=== PATIENT | male | born 1965 | race American Indian/Alaskan Native ===

== ENCOUNTER 2017-05-05 12:56 | Emergency (ER) | payer BC, OTHER ==
--- NOTE | 2017-05-05 14:37 | XRay Report ---
RIGHT SHOULDER RADIOGRAPHS INDICATION: Fall. COMPARISON: None similar at this institution. FINDINGS: Frontal and Y views of the right shoulder, 3 projections demonstrate normal humeral head contour, well positioned against the glenoid. Mild degenerative changes near the rotator cuff insertion possible/subtle Hill-Sachs deformity. Normal acromioclavicular joint. Preserved scapular contour. Normal visualized soft tissues, right ribs and lung. CONCLUSION: No acute right shoulder radiographic abnormality, as described. Thank you for the opportunity to participate in this patient's care.
--- NOTE | 2017-05-05 19:05 | Emergency Department Report ---
Upper Extremity - HPI Chief Complaint: Shoulder Injury Stated Complaint: RT SHOULDER PAIN Time Seen by Provider: 05/05/17 18:54 Upper Extremity: Right Shoulder Occurred When: Today Severity: moderate Symptoms: Yes Pain with Movement, No Deformity, No Limited Range of Movement, No Numbness, No Weakness, No Swelling, No Bruising/Ecchymosis, No Laceration or Abrasion Other History: 51-year-old male past medical history hypertension presents with complaint of right shoulder pain status post fall while playing with his children yesterday. Patient states that he fell onto his right shoulder. Denies any loss of consciousness no nausea no vomiting no neck pain only complaining of pain and right upper shoulder region. Patient states that moving his shoulder around is painful. No lacerations sustained. Also states that he ran out of his amlodipine approximately 3 weeks ago. ED Review of Systems ROS: Stated complaint: RT SHOULDER PAIN Other details as noted in HPI Constitutional: denies: chills, fever Eyes: denies: eye pain, eye discharge, vision change ENT: denies: ear pain, throat pain Respiratory: denies: cough, shortness of breath, wheezing Cardiovascular: denies: chest pain, palpitations Endocrine: no symptoms reported Gastrointestinal: denies: abdominal pain, nausea, diarrhea Genitourinary: denies: urgency, dysuria Musculoskeletal: denies: back pain, joint swelling, arthralgia Skin: denies: rash, lesions Neurological: denies: headache, weakness, paresthesias Psychiatric: denies: anxiety, depression Hematological/Lymphatic: denies: easy bleeding, easy bruising ED Past Medical Hx - Medications Home Medications: Home Medications Medication Instructions Recorded Confirmed Last Taken Type Acetaminophen/Codeine [Tylenol 1 tab PO Q6H PRN #12 tab 05/05/17 Unknown Rx /Codeine # 3 tab] Naproxen [Naprosyn TAB] 500 mg PO BID PRN #25 tablet 05/05/17 Unknown Rx amLODIPine [Norvasc] 10 mg PO DAILY #30 tab 05/05/17 Unknown Rx Upper Extremity Exam - Exam General: Vital signs noted. No distress. Alert and acting appropriately. Head and Torso: No HEENT Abnormality, No Neck Tenderness, No Chest/Lungs Abnormality, No Abdominal Tenderness, No Back Tenderness Shoulder Exam: Yes Normal Range of Motion in Shoulder (shoulder abduction and abduction and internalRotation intact), No Shoulder Tenderness, No Clavicle Tenderness, No Shoulder Deformity, No AC Joint Tenderness Arm Exam: No Arm/Humerus Tenderness, No Arm Deformity Elbow: No Elbow Tenderness, No Normal Range of Motion in Elbow, No Elbow Deformity Forearm: No Forearm Tenderness, No Forearm Deformity, No Pain with Pronation, No Pain with Supination Wrist: Yes Normal ROM in Wrist, No Wrist Tenderness, No Wrist Deformity, No Snuffbox Tenderness, No Pain with Axial Thumb Compression Hand: Yes Normal ROM in Digit(s), No Hand Tenderness, No Hand Deformity, No Digit Tenderness, No Digit(s) Deformity, No Tendon Dysfunction CMS Exam: Yes Normal Distal Pulses (distal radial and ulnar pulses intact), Yes Normal Capillary Refill (distal capillary refill less than one second in all fingers), Yes Normal Distal Sensation (distal sensation intact), No Broken Skin ED Course Vital Signs 05/05/17 13:43 Temperature 98.9 F Pulse Rate 87 Respiratory 16 Rate Blood Pressure 157/109 O2 Sat by Pulse 100 Oximetry ED Medical Decision Making - Medical Decision Making A/P: Possible right rotator cuff injury, right shoulder pain 1-x-ray shows no fracture, patient has no signs of clinical dislocation right upper extremity is neurovascularly intact, sensation intact strength 5 out of 5 2-pain with shoulder abduction above 90 suggestive of a rotator cuff injury 3-naproxen when necessary, Tylenol No. 3 when necessary 4- follow-up with primary [facility] orthopedics. Patient has no chest pain or shortness of breath no dizziness no headache no blurry vision no abdominal pain states that he ran out of his blood pressure medicine 3 weeks ago. We'll give patient refill on his amlodipine and refer him to primary care. Critical care attestation.: If time is entered above; I have spent that time in minutes in the direct care of this critically ill patient, excluding procedure time. ED Disposition Clinical Impression: Asymptomatic hypertension Right shoulder pain Qualifiers: Chronicity: acute Qualified Code(s): M25.511 - Pain in right shoulder Disposition: TO HOME OR SELFCARE Is pt being admited?: No Does the pt Need Aspirin: No Condition: Stable Instructions: Rotator Cuff Injury (ED), Shoulder Sprain (ED), Hypertension (ED) , Arthralgia (ED) Prescriptions: Acetaminophen/Codeine [Tylenol /Codeine # 3 tab] 1 tab PO Q6H PRN #12 tab PRN Reason: Pain amLODIPine [Norvasc] 10 mg PO DAILY #30 tab Naproxen [Naprosyn TAB] 500 mg PO BID PRN #25 tablet PRN Reason: Pain Referrals: TIM GREER MD [Staff Physician] - 3-5 Days [facility] [Provider Group] - 3-5 Days Forms: Work/School Release Form(ED) Time of Disposition: 19:16
[2017-05-05] MEDS ORDERED: MOTRIN PO ONE (19:14)
[2017-05-05] MEDS ORDERED: NORCO 5/325 PO ONE (19:14)
[2017-05-05] MEDS ORDERED: NORVASC PO ONE (19:57)
[2017-05-06 01:05] VITALS: BP 148/92
== END 2017-05-05 19:58 | disposition home or self-care (01) ==
LOC: ED 12:56
DX: M25.511 Pain in right shoulder (principal); I10 Essential (primary) hypertension
CPT/HCPCS: 99283

== ENCOUNTER 2022-02-16 13:24 | Emergency (ER) | payer SELFPAY ==
[2022-02-16] MEDS ORDERED: cloNIDine 0.2 MG TAB PO ONE (13:42)
[2022-02-16 13:56] LABS: Basophils % (Auto) 0.7 % (0.0-1.8); Eosinophils % (Auto) 0.3 % (0.0-4.3); Hematocrit 52.9 % (35.5-45.6); Hemoglobin 17.5 gm/dl (11.8-15.2); Lymphocytes # (Auto) 0.8 K/mm3 (1.2-5.4); Lymphocytes % (Auto) 17.4 % (13.4-35.0); Mean Corpuscular HGB Conc 33 % (32-34); Mean Corpuscular Volume 96 fl (84-94); Monocytes # (Auto) 0.4 K/mm3 (0.0-0.8); Monocytes % (Auto) 9.8 % (0.0-7.3); Platelet Count 185 K/mm3 (140-440); Red Blood Count 5.54 M/mm3 (3.65-5.03); Red Cell Distribution Width 15.1 % (13.2-15.2)
--- NOTE | 2022-02-16 14:19 | XRay Report ---
CHEST 2 VIEWS INDICATION: cp. COMPARISON: None. FINDINGS: Support devices: None. Heart: Within normal limits. Lungs/Pleura: No acute air space or interstitial disease. No significant pleural effusion. IMPRESSION: No acute findings. Signer Name: Emile Umana MD Signed: 02/16/2022 2:14 PM Workstation Name: [email or web address]
[2022-02-16 14:21] LABS: Alanine Aminotransferase 20 units/L (7-56); Albumin 4.4 g/dL (3.9-5); BUN/Creatinine Ratio 12; Blood Urea Nitrogen 11 mg/dL (9-20); Calcium 9.8 mg/dL (8.4-10.2); Hemolysis Index 10
[2022-02-16] MEDS ORDERED: hydrALAZINE 20 MG/1 ML INJ IV ONE (20:10)
[2022-02-16] MEDS ORDERED: hydrALAZINE 20 MG/1 ML INJ ONE (20:12)
--- NOTE | 2022-02-16 20:53 | Emergency Department Report ---
ED General Adult HPI - General Chief complaint: High BP Stated complaint: HBP Time Seen by Provider: 02/16/22 16:39 Source: patient Mode of arrival: Ambulatory Limitations: No Limitations - History of Present Illness Initial comments: Patient is a 56-year-old male presenting to ED with complaint of hypertension. He was seen earlier today at GI clinic where he was found to have significantly elevated blood pressure. Patient denies any symptoms. He denies past history of hypertension and is currently not on any medications. - Related Data Previous Rx's Medication Instructions Recorded Last Taken Type Acetaminophen/Codeine [Tylenol 1 tab PO Q6H PRN #12 tab 05/05/17 Unknown Rx /Codeine # 3 tab] Naproxen [Naprosyn TAB] 500 mg PO BID PRN #25 tablet 05/05/17 Unknown Rx amLODIPine 10 mg PO DAILY #30 tab 05/05/17 Unknown Rx Allergies Allergy/AdvReac Type Severity Reaction Status Date / Time No Known Allergies Allergy Verified 02/16/22 13:36 ED Review of Systems ROS: Stated complaint: HBP Other details as noted in HPI Comment: All other systems reviewed and negative Constitutional: denies: chills, fever Respiratory: denies: cough, shortness of breath, wheezing Cardiovascular: denies: chest pain, palpitations Gastrointestinal: denies: abdominal pain, nausea, diarrhea Musculoskeletal: denies: back pain, joint swelling, arthralgia Skin: denies: rash, lesions Neurological: denies: headache, weakness, paresthesias Psychiatric: denies: anxiety, depression ED Past Medical Hx - Medications Home Medications: Home Medications Medication Instructions Recorded Confirmed Last Taken Type Acetaminophen/Codeine [Tylenol 1 tab PO Q6H PRN #12 tab 05/05/17 Unknown Rx /Codeine # 3 tab] Naproxen [Naprosyn TAB] 500 mg PO BID PRN #25 tablet 05/05/17 Unknown Rx amLODIPine 10 mg PO DAILY #30 tab 05/05/17 Unknown Rx ED Physical Exam - General Limitations: No Limitations General appearance: alert, in no apparent distress - Head Head exam: Present: atraumatic, normocephalic - Respiratory Respiratory exam: Present: normal lung sounds bilaterally. Absent: respiratory distress - Cardiovascular Cardiovascular Exam: Present: regular rate, normal rhythm, normal heart sounds - GI/Abdominal GI/Abdominal exam: Present: soft. Absent: tenderness, guarding - Neurological Exam Neurological exam: Present: alert, oriented X3 - Psychiatric Psychiatric exam: Present: normal affect, normal mood - Skin Skin exam: Present: warm, dry, intact, normal color ED Course Vital Signs 02/16/22 02/16/22 02/16/22 13:34 13:50 16:15 Temperature 97 F L 98.1 F Pulse Rate 101 H 101 H 100 H Respiratory 18 16 Rate Blood Pressure 224/144 Blood Pressure 224/144 160/103 [Left] O2 Sat by Pulse 99 99 Oximetry 02/16/22 02/16/22 20:16 21:49 Temperature Pulse Rate 77 86 Respiratory 16 Rate Blood Pressure 211/142 Blood Pressure 204/133 [Left] O2 Sat by Pulse 100 Oximetry ED Medical Decision Making - Lab Data Result diagrams: 02/16/22 13:40 02/16/22 13:40 - Medical Decision Making Patient given clonidine and hydralazine in the emergency department with transient decreased to 160s systolic. CBC and CMP grossly unremarkable. Specifically he has no evidence of endorgan damage. He remains asymptomatic on reassessment. Blood pressure currently 200 systolic. He is stable for discharge home. Will start on HCTZ. Patient instructed to establish PCP as soon as possible and return to the emergency department if symptoms arise. Critical care attestation.: If time is entered above; I have spent that time in minutes in the direct care of this critically ill patient, excluding procedure time. ED Disposition Clinical Impression: Asymptomatic hypertension Disposition: HOME / SELF CARE / HOMELESS Is pt being admited?: No Condition: Stable Instructions: Hypertension (ED), Hypertension, Adult Additional Instructions: It is important that you establish a primary care doctor as soon as possible to manage your elevated blood pressure. We will start you on a general blood pressure medication however this may need to be adjusted and tailored to the desired effect. Please feel free to return to the emergency department if you experience chest pain, headache or any other concerning symptoms. Referrals: PRIMARY MD JOEL [Primary Care Provider] - 3-5 Days Time of Disposition: 23:12
[2022-02-16 21:52] VITALS: BP 204/133
--- NOTE | 2022-02-17 10:13 | Electrocardiograph Report ---
[facility] Test Date: 2022-02-16 Test Time: 17:06:03 Pat Name: DEMETRIO MCDONNELL Department: Room: Gender: M Electrolytic Etcher: MARIA A : 1965 Requested By: EDMUND COTTRELL Order Number: [id number] Reading MD: Reagan Mcgee Measurements Intervals [place] Rate: 78 P: 70 ID: [id number] QRS: -37 QRSD: 94 T: 149 QT: 412 QTc: 471 Interpretive Statements Sinus rhythm Biatrial enlargement LVH with secondary repolarization abnormality No previous ECG available for comparison Electronically Signed On 02-17-2022 10:13:17 EDT by Reagan Mcgee
--- NOTE | 2022-02-17 10:14 | Electrocardiograph Report ---
[facility] Test Date: 2022-02-16 Test Time: 19:30:16 Pat Name: DEMETRIO MCDONNELL Department: Room: Gender: M Director [employer]: Len LEUNG : 1965 Requested By: EPIFANIO MCDONNELL Order Number: [id number] Reading MD: Reagan Mcgee Measurements Intervals [place] Rate: 88 P: 74 NM: 186 QRS: -33 QRSD: 98 T: 140 QT: 389 QTc: 472 Interpretive Statements Sinus rhythm Biatrial enlargement LVH with secondary repolarization abnormality nonspecific st-t Compared to ECG 02/16/2022 17:06:03 No significant changes Electronically Signed On 02-17-2022 10:13:42 EDT by Reagan Mcgee
== END 2022-02-16 23:25 | disposition home or self-care (01) ==
LOC: ED 13:24
DX: I10 Essential (primary) hypertension (principal)
CPT/HCPCS: 36415; 71046; 80053; 84484; 85025; 93005; 96374; 99284; J0360